=== PATIENT | female | born 1995 | race Caucasian/White ===

== ENCOUNTER 2018-11-26 20:13 | Emergency (ER) | payer OTHER ==
[2018-11-26] MEDS: KETOROLAC 30 MG INJ IM (22:04)
[2018-11-26] MEDS: ONDANSETRON (ODT) 4 MG TAB ODT (22:36)
[2018-11-26] MEDS: HYDROCODONE/APAP (10/325) TAB PO (22:36)
== END 2018-11-26 23:24 | disposition home or self-care (01) ==
LOC: FTE 23:24
DX: S42.021A Displaced fracture of shaft of right clavicle, initial encounter for closed fracture (principal); N39.0 Urinary tract infection, site not specified; W18.39XA Other fall on same level, initial encounter; Y92.9 Unspecified place or not applicable
CPT/HCPCS: 29105; 73000; 73030-RT; 81003; 81025; 96372; 99284-25